=== PATIENT | female | born 1990 | race Caucasian/White ===

== ENCOUNTER 2018-05-10 21:21 | Emergency (ER) | END 2018-05-10 21:30 | disposition left against medical advice (07) | LOC: COL.ER 21:21 | DX: Z72.89 Other problems related to lifestyle (principal) ==

== ENCOUNTER 2023-06-07 06:03 | Emergency (ER) | payer OTHER ==
[~2023-06-07] VITALS: Ht 170.2 cm; Wt 60.9 kg
[2023-06-07 06:11] VITALS: BP 133/91; PULSE 75; TEMP 97.8
[2023-06-07] MEDS ORDERED: WELLBUTRIN XL300 M1 PO (06:18)
[2023-06-07] MEDS ORDERED: GEODON80 MG PO (06:18)
[2023-06-07] MEDS ORDERED: ZYRTEC 10MG10 MG PO (06:19)
[2023-06-07] MEDS ORDERED: EFFEXOR XR37.5 MG/CA (06:19)
[2023-06-07] MEDS ORDERED: PRIL40 PO (06:19)
[2023-06-07 07:28] LABS: COLLECTION METHOD CLEAN CATCH
[2023-06-07 07:47] LABS: PH 5.5 (5.0-8.5); URINE APPEARANCE Clear (CLEAR/HAZY); URINE BACTERIA Rare /hpf (NONE SEEN); URINE BLOOD Negative (NEGATIVE); URINE COLOR Yellow (YELLOW); URINE GLUCOSE Negative (NEGATIVE); URINE KETONE 1+ (NEGATIVE); URINE NITRATE Negative (NEGATIVE); URINE PROTEIN(semi-quant) Negative (NEGATIVE); URINE RBC 0-2 /hpf (0-2); URINE UROBILINOGEN 0.2 E.U/dL (0.2-1.0)
[2023-06-07 07:48] LABS: MUCOUS Present (NOT PRESENT)
[2023-06-07 08:24] LABS: BASO # 0.1 K/mm3 (0.0-0.2); BASO % 0.8 % (0.0-2.0); EOS % 0.1 % (0.0-4.0); GRAN # 5.5 K/mm3 (1.4-6.5); GRAN % 70.1 % (42.2-75.2); HEMATOCRIT 39.7 % (37.0-47.0); HEMOGLOBIN 12.9 g/dl (12.5-16.0); LYMPH # 1.7 K/mm3 (1.2-3.4); LYMPH % 21.2 % (20.0-51.0); MEAN CELL VOLUME 86 fl (80.0-100.0); MEAN CORPUSCULAR HEMOGLOBIN 28 pg (27-31); MEAN CORPUSCULAR HGB CONC 33 g/dl (33.0-37.0); MEAN PLATELET VOLUME 10.3 fl (7.4-10.4); MONO # 0.6 K/mm3 (0.1-0.6); MONO % 7.5 % (1.7-9.3); PLATELET COUNT 242 K/mm3 (130-400); RED BLOOD COUNT 4.64 M/mm3 (4.10-5.30); REDCELL DISTRIBUTION WIDTH-CV 13.5 % (11.5-14.5)
[2023-06-07 08:33] LABS: BILIRUBIN,TOTAL 0.4 mg/dL (0.2-1.2); CALCIUM 9.1 mg/dL (8.4-10.2); CREATININE, serum 0.91 mg/dL (0.57-1.11); POTASSIUM 4.1 mmol/L (3.5-4.5)
[2023-06-07 08:52] LABS: THYROID STIMULATING HORMONE 3.517 uIU/mL (0.350-4.940)
[2023-06-08] MEDS ORDERED: CEPHALEXIN500 M1 PO (16:56)
== END 2023-06-07 08:15 | disposition home or self-care (01) ==
LOC: COL.ER 06:03
PROVIDERS: Emergency Medicine
DX: R63.4 Abnormal weight loss (principal); F12.980 Cannabis use, unspecified with anxiety disorder; Z87.891 Personal history of nicotine dependence

== ENCOUNTER 2023-06-08 13:34 | Emergency (ER) | payer OTHER ==
[~2023-06-08] VITALS: Ht 170.2 cm; Wt 60.9 kg
[~2023-06-08 13:34] MED LIST: EFFEXOR XR37.5 MG/CA; GEODON80 MG PO; PRIL40 PO; WELLBUTRIN XL300 M1 PO; ZYRTEC 10MG10 MG PO
[2023-06-08 13:45] VITALS: BP 97/62; TEMP 98.3
[2023-06-08 16:01] LABS: BASO # 0.1 K/mm3 (0.0-0.2); BASO % 0.7 % (0.0-2.0); EOS % 0.3 % (0.0-4.0); GRAN # 5.7 K/mm3 (1.4-6.5); GRAN % 63.2 % (42.2-75.2); HEMATOCRIT 38.7 % (37.0-47.0); HEMOGLOBIN 12.1 g/dl (12.5-16.0); LYMPH # 2.6 K/mm3 (1.2-3.4); LYMPH % 28.7 % (20.0-51.0); MEAN CELL VOLUME 87 fl (80.0-100.0); MEAN CORPUSCULAR HEMOGLOBIN 27 pg (27-31); MEAN CORPUSCULAR HGB CONC 31 g/dl (33.0-37.0); MEAN PLATELET VOLUME 10.6 fl (7.4-10.4); MONO # 0.6 K/mm3 (0.1-0.6); PLATELET COUNT 204 K/mm3 (130-400); RED BLOOD COUNT 4.46 M/mm3 (4.10-5.30); REDCELL DISTRIBUTION WIDTH-CV 13.6 % (11.5-14.5)
[2023-06-08 16:06] LABS: COLLECTION METHOD CLEAN CATCH
[2023-06-08 16:13] LABS: ALBUMIN 3.8 gm/dL (3.5-5.0); BILIRUBIN,TOTAL 0.2 mg/dL (0.2-1.2); CALCIUM 8.9 mg/dL (8.4-10.2); CREATININE, serum 0.87 mg/dL (0.57-1.11); TOTAL PROTEIN 6.6 gm/dL (6.2-8.1)
[2023-06-08 16:45] LABS: URINE APPEARANCE Hazy (CLEAR/HAZY); URINE BACTERIA Moderate /hpf (NONE SEEN); URINE BLOOD Negative (NEGATIVE); URINE COLOR Yellow (YELLOW); URINE GLUCOSE Negative (NEGATIVE); URINE KETONE Negative (NEGATIVE); URINE NITRATE Negative (NEGATIVE); URINE PROTEIN(semi-quant) Negative (NEGATIVE); URINE RBC 0-2 /hpf (0-2); URINE UROBILINOGEN 0.2 E.U/dL (0.2-1.0)
[2023-06-08] MEDS ORDERED: CEPHALEXIN500 M1 PO (16:56)
[2023-06-08 17:40] VITALS: PULSE 80
== END 2023-06-08 17:39 | disposition home or self-care (01) ==
LOC: COL.ER 13:34
PROVIDERS: Physician Assistant
DX: N39.0 Urinary tract infection, site not specified (principal); F25.9 Schizoaffective disorder, unspecified; Z87.891 Personal history of nicotine dependence